=== PATIENT | female | born 1945 | race Caucasian/White ===

== ENCOUNTER 2020-10-20 01:24 | Emergency (ER) | payer MEDICARE ==
[2020-10-20 02:44] LABS: BILIRUBIN - TOTAL 0.7 mg/dL (0.2-1.0); BUN/CREAT RATIO (CALC) 27.9 RATIO; CREATININE 0.61 mg/dL (0.51-0.95); POTASSIUM 3.5 mmol/L (3.5-5.1)
[2020-10-20 02:56] LABS: BASOPHIL 0.8 % (0-2); EOSINOPHIL 0.7 % (0-7); HCT 46.2 % (37.0-47.0); HGB 15.1 g/dl (12.5-16.0); LYMPHOCYTE 8.7 % (15-48); MCH 31.4 pg (25.0-31.0); MCHC 32.7 g/dL (32.0-36.0); MONOCYTE 2.8 % (0-12); MPV 12.3 fL (6.0-9.5); NEUTROPHIL 85.9 % (41-80); NRBC 0; PLT 218 K/uL (150-400); RBC 4.81 M/uL (4.20-5.40); RDW 13.2 % (11.5-14.0); WBC 7.5 K/uL (4.0-10.5)
[2020-10-20 05:31] LABS: INR 0.98 (0.9-1.2); PROTHROMBIN TIME 12.3 SECONDS (11.4-13.6); PTT 27.8 SECONDS (22.2-34.7)
== END 2020-10-20 05:32 | disposition other institution (70) ==
LOC: FER 01:24
PROVIDERS: Emergency Medicine
DX: I21.4 Non-ST elevation (NSTEMI) myocardial infarction (principal); R06.2 Wheezing; R05 Cough; J44.9 Chronic obstructive pulmonary disease, unspecified; Z20.822 Contact with and (suspected) exposure to COVID-19
CPT/HCPCS: 36415; 71045; 80053; 83690; 84484; 85025; 85610; 85730; 93005; 94640; 94664; J1644; U0002